=== PATIENT | male | born 1975 | race African-American/Black ===

== ENCOUNTER 2017-03-12 09:10 | Emergency (ER) | payer OTHER ==
[~2017-03-12] VITALS: Ht 170.2 cm; Wt 63.9 kg
[~2017-03-12 09:10] MED LIST: ADDERALL30 MG PO; CIPRO500 MG PO; DILANTIN BRAND100 MG PO; KEFLEX500 MG PO; MOBIC15 MG PO; PYRIDIUM100 MG PO; ROBITUSSIN AC,T10 ML PO; ZITHROMAX250 MG PO
[2017-03-12] MEDS ORDERED: PREDNISONE20 MG PO (10:41)
[2017-03-12] MEDS ORDERED: ROBITUSSIN NIG118 ML PO (10:41)
[2017-03-12] MEDS ORDERED: TESSALON PERLE100 MG PO (10:41)
[2017-03-12] MEDS ORDERED: FLONASE16 G1 BOTH NARES (10:41)
[2017-03-12 11:09] VITALS: BP 112/78
== END 2017-03-12 11:10 | disposition home or self-care (01) ==
LOC: EME 09:10
DX: J06.9 Acute upper respiratory infection, unspecified (principal); J45.901 Unspecified asthma with (acute) exacerbation; J30.2 Other seasonal allergic rhinitis; F17.200 Nicotine dependence, unspecified, uncomplicated
CPT/HCPCS: 87502; 94640; 99281; 99284; J1885; J7512

== ENCOUNTER 2017-03-25 12:36 | Emergency (ER) | payer OTHER ==
[~2017-03-25] VITALS: Ht 170.2 cm; Wt 61.9 kg
[~2017-03-25 12:36] MED LIST changes: +FLONASE16 G1 BOTH NARES; +PREDNISONE20 MG PO; +ROBITUSSIN NIG118 ML PO; +TESSALON PERLE100 MG PO
[2017-03-25 14:07] LABS: CHLORIDE 100 mEq/L (99-109); POTASSIUM 3.2 mEq/L (3.7-5.4); SODIUM 136 mEq/L (136-147)
[2017-03-25 14:09] LABS: D-DIMER ELISA 0.49 mg/L FEU (< 0.57)
[2017-03-25 14:10] LABS: ANION GAP 11 MEQ/L (2-14); GLUCOSE 139 mg/dL (70-99)
[2017-03-25 14:12] LABS: GFR ESTIMATE (CALCULATED) > 59 mL/min/
[2017-03-25 14:13] LABS: UREA NITROGEN (BUN) 11 mg/dL (9-23)
[2017-03-25 14:20] LABS: TROP-I INTERPRETATION NEGATIVE; TROPONIN-I < 0.01 ng/mL (0.0-0.30)
[2017-03-25] MEDS ORDERED: LEVAQUIN500 MG PO (14:47)
[2017-03-25 14:56] VITALS: BP 127/63
== END 2017-03-25 15:12 | disposition home or self-care (01) ==
LOC: EME 12:36
PROVIDERS: Emergency Medicine
DX: J18.9 Pneumonia, unspecified organism (principal); J45.909 Unspecified asthma, uncomplicated; Z72.0 Tobacco use
CPT/HCPCS: 71020; 80048; 84484; 85379; 93005; 99281; 99284; J1885